=== PATIENT | male | born 1985 | race Caucasian/White ===

== ENCOUNTER 2025-11-07 16:00 | Emergency (ER) | payer MEDICAID, SELFPAY ==
[2025-11-07 16:01] VITALS: BP 111/64; PULSE 74; RESP 18; TEMP 36.1; O2SAT 97
[2025-11-07 16:22] VITALS: BMI 34.0
--- NOTE | 2025-11-07 16:29 | CT_ITS ---
PROCEDURE: CT BRAIN/HEAD; SPINE CERVICAL WITHOUT CONTRAST 11/07/2025 REASON FOR EXAM: SYNCOPE TECHNIQUE: Procedure Code: CTBR; CTSPC Modality: CT Procedure: BRAIN/HEAD WITHOUT CONTRAST; SPINE CERVICAL WITHOUT CONTRAS Coronal and Sagittal reconstruction series were provided. One or more dose reduction techniques were used (e.g., Automated exposure control, adjustment of the mA and/or kV according to patient size, use of iterative reconstruction technique. RADIATION DOSE SUMMARY: DLP: 1278.49 mGycm COMPARISON: None. FINDINGS: HEAD: No acute intracranial hemorrhage, extra-axial collection, mass effect or evidence of acute infarct. Ventricles and subarachnoid spaces are normal in size. Orbital contents are unremarkable. Mild right frontal scalp contusion. Intact skull base and calvarium. Clear sinuses and mastoids. CERVICAL SPINE: No acute fracture or subluxation. Alignment is anatomic. Mild multilevel spondylotic changes with varying degrees of mild disc space narrowing, endplate sclerosis and anterior osteophytosis, small subchondral cyst formation at the superior endplate of C5, and hypertrophic facet arthropathy. No prevertebral soft tissue swelling. CT/Spine Cervical without Contras IMPRESSION: No acute intracranial abnormality. No cervical spine fracture or subluxation. Mild spondylotic changes. Reading Location: [id number]
--- NOTE | 2025-11-07 16:29 | CT_ITS ---
PROCEDURE: CT BRAIN/HEAD; SPINE CERVICAL WITHOUT CONTRAST 11/07/2025 REASON FOR EXAM: SYNCOPE TECHNIQUE: Procedure Code: CTBR; CTSPC Modality: CT Procedure: BRAIN/HEAD WITHOUT CONTRAST; SPINE CERVICAL WITHOUT CONTRAS Coronal and Sagittal reconstruction series were provided. One or more dose reduction techniques were used (e.g., Automated exposure control, adjustment of the mA and/or kV according to patient size, use of iterative reconstruction technique. RADIATION DOSE SUMMARY: DLP: 1278.49 mGycm COMPARISON: None. FINDINGS: HEAD: No acute intracranial hemorrhage, extra-axial collection, mass effect or evidence of acute infarct. Ventricles and subarachnoid spaces are normal in size. Orbital contents are unremarkable. Mild right frontal scalp contusion. Intact skull base and calvarium. Clear sinuses and mastoids. CERVICAL SPINE: No acute fracture or subluxation. Alignment is anatomic. Mild multilevel spondylotic changes with varying degrees of mild disc space narrowing, endplate sclerosis and anterior osteophytosis, small subchondral cyst formation at the superior endplate of C5, and hypertrophic facet arthropathy. No prevertebral soft tissue swelling. CT/Brain/Head without Contrast IMPRESSION: No acute intracranial abnormality. No cervical spine fracture or subluxation. Mild spondylotic changes. Reading Location: [id number]
--- NOTE | 2025-11-07 16:31 | EKG12_ITS ---
Test Reason : SYNCOPE Blood Pressure : */* mmHG Vent. Rate : 74 BPM Atrial Rate : 74 BPM P-R Int : 162 ms QRS Dur : 106 ms QT Int : 388 ms P-R-T Axes : 40 48 15 degrees QTcB Int : 430 ms Normal sinus rhythm Normal ECG Confirmed by Fei Rose ([id number]), market editor ALINA MUÑOZ [id number]) on 11/12/2025 9:10:29 AM Referred By: Confirmed By: Fei Rose
[2025-11-07 16:37] VITALS: BP 128/66; BP 155/105; BP 162/73; PULSE 83; PULSE 86; PULSE 94
--- NOTE | 2025-11-07 16:48 | EX.ED.GENINJ ---
HPI History of Present Illness Chief Complaint: Bite Narrative Narrative: Chief complaint and HPI: 40-year-old male with past medical history of HTN, HLD, GERD presents for evaluation of syncopal episode after a dog bite. Patient states that his dogs got into a physical altercation in his house. He states he reached into the large dog's mouth to free his small dog. He states his finger scraped against the dog's tooth. Denies being bit otherwise. He states he went into the bathroom to clean his wounds when he became lightheaded and passed out. Hit his head on the ground. Not on blood thinners. Currently asymptomatic. Denies any fever, chills, shortness of breath, chest pain, abdominal pain, nausea, vomiting. Denies any extremity pain from the dog wound. States he has some mild neck pain. Review of systems: See HPI Medications: As listed on the chart Allergies: As listed on the chart PFSH: Per chart Vital signs: As listed on the chart. Reviewed. Physical exam: Gen: A&O x3, NAD Head: Normocephalic, hematoma to the scalp Eyes: No sclera icterus, conjunctiva clear, PERRL, EOMI ENT: TMs clear BL, moist mucous membranes, face atraumatic without tenderness Neck: Trachea midline, no midline spinal tenderness, no bony step-offs, full range of motion, mild tenderness to palpation of the right paraspinal musculature of the cervical spine CV: RRR, no murmurs, no chest wall TTP Resp: Lungs CTA BL, no w/r/c GI: Abd soft, non-distended, non-tender, no r/r/g Musc: Full ROM, no deformity, no spinal TTP, no shivam step-offs Skin: Warm, dry, patient has 2 abrasions on his right hand and one abrasion on the left hand from the dog incident-no deep laceration -no active bleeding, no bony tenderness or swelling, no ecchymosis, radial pulses +2 bilaterally, good capillary refill, compartments soft Neuro: Alert, oriented, grossly intact, sensation intact Psych: Cooperative, appropriate mood and affect [facility] Medical History (Updated 11/07/25 @ 17:[address] Milton Head, DO) Hypercholesteremia GERD (gastroesophageal reflux disease) Hypertension Home Medications ?Medication ?Instructions ?Recorded ?Last Taken ?Type amlodipine 10 mg tablet 10 mg PO DAILY 11/07/25 Unknown History amoxicillin 875 mg-potassium 1 tab PO BID 7 days #14 tabs 11/07/25 Unknown Rx clavulanate 125 mg tablet lisinopril 10 mg tablet 10 mg PO DAILY 11/07/25 Unknown History omeprazole 40 mg capsule,delayed 40 mg PO BID 11/07/25 Unknown History release rosuvastatin 40 mg tablet 40 mg PO DAILY 11/07/25 Unknown History Allergy/AdvReac Type Severity Reaction Status Date / Time ciprofloxacin Allergy Mild Vomiting Verified 11/07/25 16:01 Social History Smoking Status: Current every day smoker tobacco type: e-cigarettes EXAM Physical Exam Const Vital Signs: 11/07/25 16:01 11/07/25 16:23 11/07/25 16:37 Temperature 97.0 F L Temperature Source Temporal Pulse Rate 74 Pulse Rate [Lying] 83 Pulse Rate [Sitting (for 1 minute prior to obtaining)] 94 Pulse Rate [Standing (for 1 minute prior to obtaining)] 86 Respiratory Rate 18 Respiratory Effort Normal Non-Labored Blood Pressure 111/64 Blood Pressure [Lying] 162/73 H Blood Pressure [Sitting (for 1 minute prior to obtaining)] 128/66 H Blood Pressure [Standing (for 1 minute prior to obtaining)] 155/105 H Blood Pressure Mean 79 Blood Pressure Mean [Lying] 102 Blood Pressure Mean [Sitting (for 1 minute prior to obtaining)] 86 Blood Pressure Mean [Standing (for 1 minute prior to obtaining)] 121 Pulse Ox 97 Oxygen Delivery Method Room Air MDM MDM MDM Narrative Medical decision making narrative: 40-year-old male with past medical history of HTN, HLD, GERD presents for evaluation of syncopal episode after a dog bite. Patient states that his dogs got into a physical altercation in his house. He states he reached into the large dog's mouth to free his small dog. He states his finger scraped against the dog's tooth. Denies being bit otherwise. He states he went into the bathroom to clean his wounds when he became lightheaded and passed out. Hit his head on the ground. Not on blood thinners. Currently asymptomatic other than some mild neck pain. On presentation, patient no acute distress. Vitals are stable. Suspect patient's syncope was secondary to a vasovagal response. Will obtain EKG to assess for arrhythmia. Will obtain CT head and neck to assess for fracture or intracranial bleed. I do not think any further syncope workup is needed otherwise such as labs. Patient in agreement. He has no bony tenderness and denies any true dog bite therefore I do not think any x-rays of the hands are needed. No lacerations need repaired. Wounds will be cleaned. Patient is not up to date on tetanus therefore tetanus will be updated. Patient will be given his first dose of Augmentin to prevent infection. EKG was personally reviewed and interpreted by me, ED physician. Normal sinus rhythm with a heart rate of 74. No acute prolonged QTc. CT of the head shows no acute intracranial abnormality. CT of the cervical spine without traumatic injury. Orthostatic vital signs were negative other than patient got a little lightheaded with standing. This quickly resolved. He ambulated without difficulty. Patient is comfortable discharging home. I do believe his syncope was due to a vasovagal response. Monitor for signs of infection. Follow-up with primary care physician. Return precautions explained. He confirmed understand the plan. Reasonable to discharge home. Impression: 1. Syncope, vagal reaction 2. Dog bite to the hand Radiography Diagnostic Testing: Clinical Impression(s) from Imaging Studies Brain CT 11/07/25 16:29 IMPRESSION: No acute intracranial abnormality. No cervical spine fracture or subluxation. Mild spondylotic changes. Reading Location: [facility] Cervical Spine CT 11/07/25 16:29 IMPRESSION: No acute intracranial abnormality. No cervical spine fracture or subluxation. Mild spondylotic changes. Reading Location: [facility] Discharge Plan Triage Chief Complaint: Bite Other Complaint: Syncope ED Provider: Milton Head Dx/Rx/DC Orders Clinical Impression: Syncope, Dog bite Instructions: ED Dog Bite, ED Fainting, Vagal Reaction Prescriptions: New amoxicillin-pot clavulanate 875-125 mg tablet 1 tab PO BID 7 Days Qty: 14 0RF No Action omeprazole 40 mg capsule,delayed release(DR/EC) 40 mg PO BID amlodipine 10 mg tablet 10 mg PO DAILY lisinopril 10 mg tablet 10 mg PO DAILY rosuvastatin 40 mg tablet 40 mg PO DAILY Primary Care Provider: Blake Negrete Referrals: Blake Negrete MD [Primary Care Provider, Family Practice] - 3-5 Days Activity Restrictions/Additional Instructions: Monitor for signs of infection. Take all of your antibiotics. You received your first dose here in the emergency department. Return back to ED if symptoms change or worsen. Print Language: Liberian Disposition Disposition: Home, Self Care
[2025-11-07 18:11] VITALS: BP 135/97; PULSE 91; RESP 16; O2SAT 100
[2025-11-07 18:12] VITALS: BP 135/97; PULSE 91; RESP 16; TEMP 36.6; O2SAT 100
== END 2025-11-07 18:15 | disposition home or self-care (01) ==
PROVIDERS: Emergency Provider Surgery; PCP Family Medicine; Visit Provider Surgery
DX: R55 Syncope and collapse (principal); S61.459A Open bite of unspecified hand, initial encounter; E78.00 Pure hypercholesterolemia, unspecified; R42 Dizziness and giddiness; I10 Essential (primary) hypertension; K21.9 Gastro-esophageal reflux disease without esophagitis; F17.290 Nicotine dependence, other tobacco product, uncomplicated; W54.0XXA Bitten by dog, initial encounter
CPT/HCPCS: 70450; 72125; 90715; 93005; 99285